=== PATIENT | female | born 1990 | race Caucasian/White ===

== ENCOUNTER 2016-11-07 20:51 | Emergency (ER) | payer OTHER ==
[2016-11-07] MEDS ORDERED: HYDROmorphone HCL 1 MG/ML SYR ONE ×2 (21:32→23:13)
[2016-11-07] MEDS ORDERED: ONDANSETRON HCL 4 MG/2 ML VIAL ONE (21:33)
[2016-11-07] MEDS ORDERED: KETOROLAC TROMETHAMINE 30 MG/ML VIAL ONE (21:33)
[2016-11-07 21:55] LABS: BASOPHILS 0.3 % (0.0-2.0); EOSINOPHILS 1.5 % (0.0-6.0); EOSINOPHILS# 0.1 X 10^3uL (0.0-0.4); HEMATOCRIT 42.2 % (36.0-48.0); HEMOGLOBIN 14.7 g/dL (12.0-16.0); LYMPHOCYTES 35.8 % (20.0-40.0); LYMPHOCYTES# 2.9 X 10^3uL (0.8-3.8); MEAN CELL VOLUME 92.7 fL (80.0-100.0); MEAN CORPUS. HGB CONCENTRATION 34.7 g/dL (32.0-36.0); MEAN CORPUSCULAR HEMOGLOBIN 32.2 pg (29.0-35.0); MEAN PLATELET VOLUME 7.6 fL (7.4-10.4); MONOCYTES 5.5 % (2.0-10.0); MONOCYTES# 0.5 X 10^3uL (0.2-1.0); NEUTROPHILS 56.9 % (54.0-75.0); NEUTROPHILS# 4.7 X 10^3uL (2.6-6.7); PLATELET COUNT 263 X 10^3uL (130-440); RED BLOOD COUNT 4.55 X 10^6uL (4.20-6.10); RED CELL DISTRIBUTION WIDTH 11.1 % (11.5-14.5); WHITE BLOOD COUNT 8.2 X 10^3uL (3.9-10.7)
[2016-11-07 22:07] LABS: BLOOD UREA NITROGEN 15 mg/dL (7-17); CHLORIDE 105 mmol/L (98-107); CREATININE 0.7 mg/dL (0.5-1.0); EST GLOMERULAR FILTRATION RATE > 60 mL/min; GLUCOSE 94 mg/dL (70-100); POTASSIUM 3.6 mmol/L (3.5-5.1); SODIUM 139 mmol/L (137-145)
[2016-11-07] MEDS ORDERED: ACETAMINOPHEN 325 MG TABLET PO ONE ×2 (23:22)
[2016-11-07] MEDS ORDERED: PIPERACILLIN /TAZO 3.375 GM/10 ML VIAL IV ONE (23:23)
[2016-11-07] MEDS ORDERED: NORMAL SALINE 100 ML IV ONE (23:26)
--- NOTE | 2016-11-08 01:11 | ER NURSING DOCUMENTATION ---
Nurse's Notes [facility] Name:Diana Kat Age:25 yrs Sex:Female :1990 Arrival Date:11/07/2016 Time:20:51 Bed5 Private MD: Diagnosis:Abdominal Pain, Right Lower Quadrant;Ovarian Cyst Presentation: 11/07 21:23 Presenting complaint: Patient states: C/O RLQ pain that is similar to her ovarian cyst rs MAR 2016. Discomfort started nine daus ago, saww a [employer] MD six days ago, an US was done and a 3 cm cyst was present. She was instructed by that MD to wait 6 weeks and see how she did. This evening at 5:30 the discomfort changed to severe pain. The pain is constant with waves of sharp stabbing pain in her RLQ radiating into her right pelvis. She had a fever earlier of 103.9. She has vomited once. Took Advil without any relief. States this pain is much more severe than the ovarian cyst last summer. Pain increases when she straightens her legs or walks. Transition of care: patient was not received from another setting of care. 21:23 Acuity: JORDI 2 rs 21:23 Method Of Arrival: Private Vehicle rs Triage Assessment: 21:15 General: Appears distressed, uncomfortable, well developed, well nourished, well rs groomed, Behavior is cooperative, pleasant, Reports chills for fever for fatigue for. Pain: Complains of pain in RLQ. 21:15 Neuro: No deficits noted. Level of Consciousness is awake, alert, Oriented to person, rs place, time, event. Cardiovascular: No deficits noted. Capillary refill < 3 seconds Heart tones S1 S2 Pulses. Respiratory: No deficits noted. Airway is patent Respiratory effort is even, unlabored, Respiratory pattern is regular, symmetrical, Breath sounds are clear bilaterally. GI: Abdomen is flat, non- distended Last meal at 17:30. other last BM today. Has been constipated recently. LMP: states she has been spotting for one month due to BCP. Bowel sounds hypoactive in right upper quadrant, left upper quadrant, right lower quadrant and left lower quadrant Abd is soft Abdomen is tender to palpation in right lower quadrant Reports lower abdominal pain, nausea, vomiting. : No deficits noted. Urine is clear, Denies burning with urination, discharge, inability to void, urinary frequency, urgency. Derm: No deficits noted. Skin is pink, warm & dry. Historical: - Allergies: Sulfa (Sulfonamide Antibiotics); - Home Meds: 1. control - PMHx: endometriosis; OVARIAN CYST; - PSHx: ovarian cyst; - Tetanus: unknown. - Ebola Screening: : Patient negative for fever greater than or equal to 101.5 degrees Fahrenheit, and additional compatible Ebola Virus Disease symptoms. Patient denies exposure to infectious person. Patient denies travel to an Ebola-affected area in the 21 days before illness onset. No symptoms or risks identified at this time. . - Immunization history: Unable to Obtain. - Social history: Smoking status: Patient states was never smoker of tobacco. Patient uses alcohol but reports only rare drinking. Screenin:30 Nutritional screening: No deficits noted. rs 23:07 Infectious Disease Risk None. Abuse screen: Denies threats or abuse. rs Assessment: 23:05 Reassessment: No changes from previously documented assessment. rs Vital Signs: 20:58 BP 111 / 52 (auto/); rs 21:00 BP 111 / 52; Pulse 73; Resp 20; Temp 100.6; Pulse Ox 96% ; Weight 56.7 kg; Height 5 ft. jt 3 in. (160.02 cm); Pain 9/10; 21:02 Pulse Ox 95% ; rs 21:32 Pulse Ox 99% ; rs 22:07 Pulse Ox 96% ; rs 22:07 BP 107 / 60 (auto/); Pulse 84; Resp 18; Pulse Ox 94% on R/A; rs 22:26 BP 107 / 72 (auto/); rs 22:27 BP 110 / 63; Pulse 88; Resp 18; Pulse Ox 94% on R/A; rs 22:45 BP 114 / 62 (auto/); rs 22:47 Pulse Ox 92% ; rs 11/08 00:19 BP 107 / 69; Pulse 86; Resp 16; Pulse Ox 94% on 2 lpm NC; mk4 11/07 21:00 Body Mass Index 22.14 (56.70 kg, 160.02 cm) jt Veronica Coma Score: 11/07 22:47 Eye Response: spontaneous(4). Verbal Response: oriented(5). Motor Response: obeys cd commands(6). Total: 15. ED Course: 20:53 Patient arrived in ED. jt 21:10 Inserted peripheral IV: saline lock: 20 gauge in right antecubital area and blood jt collected. 21:10 Notified ED Physician of patient's arrival and chief complaint. Dr. Ernst notified. Arm rs band placed on Bed in low position Call Light in Reach Gowned HOB Elevated Side rails up x2 Emesis basin given. Family Pt has contacted her step mother, and she is accompanied by her boyfriend. Labs ordered per protocol. Drawn by ED staff. Urine obtained. 21:15 Diet: Patient is NPO. rs 21:23 Laura Park, RN is Primary Nurse. rs 21:25 Bharat Ernst MD is Attending Physician. cd 21:45 Triage completed. rs 23:07 Pulse Ox - RN Monitoring Only. Door closed. Noise minimized. Verbal reassurance given. rs 04/ 00:18 Valuables Remains with patient. mk4 Administered Medications: Completed: NS 0.9% 1000 ml IV at bolus once 11/07 21:30 Drug: NS 0.9% 1000 ml; Volume: 1000 ml; Route: IV; Rate: bolus; Site: right rs antecubital; Delivery: [place] [facility]; 22:43 Follow up: IV Status: Completed infusion; IV Intake: 1000ml rs 21:35 Drug: Zofran 4 mg; Route: IVP; Rate: 2 mg/min; Infused Over: 2 mins; Site: right rs antecubital; 22:11 Follow up: Response: No adverse reaction; Nausea is decreased rs 21:37 Drug: Toradol 30 mg; Route: IVP; Rate: 15 mg/min; Infused Over: 2 mins; Site: right rs antecubital; 22:11 Follow up: Response: No adverse reaction; No change in condition rs 21:40 Drug: Dilaudid 0.5 mg; Route: IVP; Rate: 0.25 mg/min; Infused Over: 2 mins; Site: right rs antecubital; 22:11 Follow up: Response: No adverse reaction; No change in condition rs 21:55 Drug: Dilaudid 0.5 mg; Route: IVP; Rate: 0.25 mg/min; Infused Over: 2 mins; Site: right rs antecubital; 23:00 Drug: NS 0.9% 1000 ml; Route: IV; Rate: bolus; Infused Over: 1000 continuous; Site: mk4 right antecubital; Delivery: [place] [facility]; 11/08 00:40 Drug: Zosyn 3.375 grams; Volume: 100 ml; Route: IVPB; Rate: 3.375 bolus; Infused Over: mk4 1 hrs; Site: right antecubital; Delivery: Pump; 00:43 Drug: Acetaminophen 975 mg; Route: PO; mk4 21:15 Drug: Dilaudid 1 mg; Route: IVP; Rate: 1 bolus; Infused Over: 2 mins; Site: right mk4 antecubital; 21:16 Follow up: Response: No adverse reaction; Pain is decreased; late entry mk4 Intake: 11/07 22:43 IV: 1000ml; Total: 1000ml. rs 23:05 PO: 0ml; IV: 1000ml; Total: 2000ml. rs Outcome: 23:08 Report given to Aaliyah stevens 11/08 00:19 [facility]: stable Report given to [facility] grain sacker Assessment: Patient awake, alert and oriented x 3. No cognitive and/or functional deficits noted. Patient verbalized understanding of disposition instructions. 01:09 ER care complete, transfer ordered by . gerald 01:10 Patient left the ED. rs 21:17 Patient left the ED. 4 Signatures: Laura Park RN RN Bharat Mauricio MD MD cd King, Coral Gonzalez
--- NOTE | 2016-11-08 01:11 | ER PHYSICIAN DOCUMENTATION ---
Physician Documentation [facility] Name:Diana Kat Age:25 yrs Sex:Female :1990 Arrival Date:11/07/2016 Time:20:51 Bed5 Private MD: Bharat Martins Disposition: 11/08/16 01:09 Transfer ordered to [facility]. Diagnosis are Abdominal Pain, Right Lower Quadrant, Ovarian Cyst. - Reason for transfer: Higher level of care. - Accepting physician is Dr. Man. - Condition is Fair. - Problem is an ongoing problem. - Symptoms have improved. COBRA Form completed? Yes Transfer - Mode of Transportation Ambulance HPI: 11/07 22:37 This 25 yrs old Female presents to ER via Private Vehicle with complaints of cd RLQ Abdominal Pain / Pelvic Pain. 22:37 The patient presents with abdominal pain in the lower abdomen, right lower quadrant. cd Onset: The symptoms/episode began/occurred acutely, today, at 17:00. Associated signs and symptoms: Pertinent positives: anorexia, constipation, fever, nausea, vomiting, Pertinent negatives: blood in stools, diarrhea, dysuria, vomiting blood. The symptoms are described as achy, constant. Severity of pain: At its worst the pain was severe in the emergency department the pain is unchanged. Risk factors for ectopic : Hx of Endometriosis. The patient has experienced a previous episode, approximately 8 months ago, and the symptoms today are exactly the same, and had a large "softball sized" right ovarian infected cyst that was surgically removed. Five days ago the patient had right pelvic pain, went to her [facility] at [facility]. An Ultrasound was done and a 3 cm right Adnexal cyst was found. The [facility] wanted to recheck her in six weeks. The patient reports she had a fever of 103.9 degrees F. No vaginal discharge or bleeding. 22:37 The symptoms do not radiate. The patient has been recently seen by a physician: the cd patient's primary care provider, 5 day(s) ago, with similar presenting complaints, and apparently given a diagnosis of Right Ovarian Cyst, an ultrasound was done. Historical: - Allergies: Sulfa (Sulfonamide Antibiotics); - Home Meds: 1. control - PMHx: endometriosis; OVARIAN CYST; - PSHx: ovarian cyst; - Tetanus: unknown. - Ebola Screening: : Patient negative for fever greater than or equal to 101.5 degrees Fahrenheit, and additional compatible Ebola Virus Disease symptoms. Patient denies exposure to infectious person. Patient denies travel to an Ebola-affected area in the 21 days before illness onset. No symptoms or risks identified at this time. . - Immunization history: Unable to Obtain. - Social history: Smoking status: Patient states was never smoker of tobacco. Patient uses alcohol but reports only rare drinking. ROS: 22:45 Neck: Negative for injury, pain, stiffness and swelling. cd Cardiovascular: Negative for chest pain, palpitations, edema and pleuritic pain. Respiratory: Negative for shortness of breath, dyspnea on exertion, cough, sputum production, wheezing, hemoptysis and pleuritic chest pain. Back: Negative for injury, pain or muscle spasms. MS/Extremity: Negative for injury, deformity, edema, calf tenderness, pain or coldness. Skin: Negative for injury, rash, itching and discoloration. 22:45 Neuro: Negative for headache, weakness, numbness, tingling, and seizure. cd 22:45 Constitutional: Positive for fever, poor PO intake, Negative for chills. 22:45 Abdomen/GI: Positive for abdominal pain, nausea, vomiting, constipation, anorexia, of the suprapubic area and right lower quadrant, Negative for diarrhea, abdominal distension, hematemesis, black/tarry stool, rectal bleeding. 22:45 : Positive for pelvic pain, Negative for urinary symptoms, urinary frequency, burning with urination, vaginal bleeding, vaginal discharge. 22:45 All other systems are negative. cd Exam: ENT: Nares patent. No nasal discharge, no septal abnormalities noted. Tympanic membranes are normal and external auditory canals are clear. Oropharynx with no redness, swelling, or masses, exudates, or evidence of obstruction, uvula midline. Mucous membranes dry. Cardiovascular: Regular rate and rhythm with a normal S1 and S2. No gallops, murmurs, or rubs. Normal PMI, no JVD. No pulse deficits. Respiratory: Lungs have equal breath sounds bilaterally, clear to auscultation and percussion. No rales, rhonchi or wheezes noted. No increased work of breathing, no retractions or nasal flaring. Back: No spinal tenderness. No costovertebral tenderness. Full range of motion. Skin: Warm, dry with normal turgor. Normal color with no rashes, no lesions, and no evidence of cellulitis. MS/ Extremity: Pulses equal, no cyanosis. Neurovascular intact. Full, normal range of motion. 22:47 Neuro: Awake and alert, GCS 15, oriented to person, place, time, and situation. cd Cranial nerves II-XII grossly intact. Motor strength 5/5 in all extremities. Sensory grossly intact. Cerebellar exam normal. Normal gait. 22:47 Constitutional: The patient appears alert, awake, non-diaphoretic, non-toxic, well developed, well nourished, anxious, in obvious distress, moderately distressed. 22:47 Abdomen/GI: Palpation: moderate abdominal tenderness, in the right lower quadrant, rebound tenderness, is not appreciated, voluntary guarding, is elicited in the suprapubic area and right lower quadrant, involuntary guarding, is not appreciated, no appreciated organomegaly, Rectal exam: the exam is deferred, Indicators: McBurney's point is tender, Malik's sign is negative. Vital Signs: 20:58 BP 111 / 52 (auto/); rs 21:00 BP 111 / 52; Pulse 73; Resp 20; Temp 100.6; Pulse Ox 96% ; Weight 56.7 kg; Height 5 ft. jt 3 in. (160.02 cm); Pain 9/10; 21:02 Pulse Ox 95% ; rs 21:32 Pulse Ox 99% ; rs 22:07 Pulse Ox 96% ; rs 22:07 BP 107 / 60 (auto/); Pulse 84; Resp 18; Pulse Ox 94% on R/A; rs 22:26 BP 107 / 72 (auto/); rs 22:27 BP 110 / 63; Pulse 88; Resp 18; Pulse Ox 94% on R/A; rs 22:45 BP 114 / 62 (auto/); rs 22:47 Pulse Ox 92% ; rs 04 00:19 BP 107 / 69; Pulse 86; Resp 16; Pulse Ox 94% on 2 lpm NC; mk4 11/07 21:00 Body Mass Index 22.14 (56.70 kg, 160.02 cm) jt Vallejo Coma Score: 11/07 22:47 Eye Response: spontaneous(4). Verbal Response: oriented(5). Motor Response: obeys cd commands(6). Total: 15. MDM: 21:00 Data interpreted: Pulse oximetry: on room air is 94 %. Interpretation: normal. cd 21:25 Patient medically screened. cd 22:47 Differential diagnosis: appendicitis, bowel obstruction, non-specific abd pain, Ovarian cd Torsion, Pelvic Inflammatory Disease, Pyelonephritis, Tubal Ovarian Abcess, Ureterolithiasis, urinary tract infection, Ruptured ovarian cyst. 22:50 Data reviewed: vital signs, nurses notes, old medical records, and as a result, I will cd continue to observe the patient, administer IV fluids, NS bolus, NS maintenence, prescribe pain medication, Dilaudid, Toradol. 22:55 Response to treatment: the patient's symptoms have mildly improved after treatment, cd continued severe pain in RLQ Abdomen and Pelvis. Needs CT Scan of the abdomen tonight, [facility] [place]'s CT scanner is done for 2 days. Also needs Ultrasound of Pelvis which is unavailable on weekends at [facility] [place] [place]. Must rule out Ovarian Torsion, Acute Appendicitis, Right known Ovarian Cyst that might be infected like previous cyst 8 months ago. The patient will be transferred to [facility] ED by Ambulance. 23:15 Physician consultation: Dr. Donovan CAM was called at 23:00, was contacted at 23:05, regarding admission, to [facility] ED, consult, patient's condition, need to come to ED to see patient, need to evaluate the patient as soon as possible, and will see patient in ED, shortly, later today, after a discussion of the case, a recommendation for transfer for higher level of care is made. 23:45 Counseling: I had a detailed discussion with the patient and/or guardian regarding: the cd historical points, exam findings, and any diagnostic results supporting the discharge/admit diagnosis, lab results, the need to transfer to another facility, for higher level of care, [facility] does not immediately have the required specialist. 11/07 22:12 Order name: CBC AUTO DIF, MDIF/RMOR IF IND; Complete Time: 23:08 EDMS 11/07 22:31 Interpretation: Normal. 11/07 22:12 Order name: BASIC METABOLIC PANEL; Complete Time: 23:08 EDMS 04 22:31 Interpretation: Normal. 11/07 22:41 Order name: HCG, SERUM; Complete Time: 23:08 EDMS 11/07 23:08 Interpretation: Normal. 11/07 21:26 Order name: NPO; Complete Time: 21:52 cd Dispensed Medications: Completed: NS 0.9% 1000 ml IV at bolus once 21:30 Drug: NS 0.9% 1000 ml; Volume: 1000 ml; Route: IV; Rate: bolus; Site: right rs antecubital; Delivery: [place] [facility]; 22:43 Follow up: IV Status: Completed infusion; IV Intake: 1000ml rs 21:35 Drug: Zofran 4 mg; Route: IVP; Rate: 2 mg/min; Infused Over: 2 mins; Site: right rs antecubital; 22:11 Follow up: Response: No adverse reaction; Nausea is decreased rs 21:37 Drug: Toradol 30 mg; Route: IVP; Rate: 15 mg/min; Infused Over: 2 mins; Site: right rs antecubital; 22:11 Follow up: Response: No adverse reaction; No change in condition rs 21:40 Drug: Dilaudid 0.5 mg; Route: IVP; Rate: 0.25 mg/min; Infused Over: 2 mins; Site: right rs antecubital; 22:11 Follow up: Response: No adverse reaction; No change in condition rs 21:55 Drug: Dilaudid 0.5 mg; Route: IVP; Rate: 0.25 mg/min; Infused Over: 2 mins; Site: right rs antecubital; 23:00 Drug: NS 0.9% 1000 ml; Route: IV; Rate: bolus; Infused Over: 1000 continuous; Site: [facility] right antecubital; Delivery: [place] [facility]; 11/08 00:40 Drug: Zosyn 3.375 grams; Volume: 100 ml; Route: IVPB; Rate: 3.375 bolus; Infused Over: mk4 1 hrs; Site: right antecubital; Delivery: Pump; 00:43 Drug: Acetaminophen 975 mg; Route: PO; mk4 21:15 Drug: Dilaudid 1 mg; Route: IVP; Rate: 1 bolus; Infused Over: 2 mins; Site: right mk4 antecubital; 21:16 Follow up: Response: No adverse reaction; Pain is decreased; late entry mk4 Signatures: Laura Park RN RN rs Bharat Ernst MD MD cd King, Melody [facility]
[2016-11-08] MEDS ORDERED: ONDANSETRON HCL 4 MG/2 ML VIAL ONE (03:49)
[2016-11-08] MEDS ORDERED: MORPHINE SULFATE 10 MG/ML SYR ONE (03:51)
== END 2016-11-08 21:17 | disposition short-term general hospital (02) ==
LOC: ER 20:51
DX: N83.201 Unspecified ovarian cyst, right side (principal); R50.9 Fever, unspecified; R11.2 Nausea with vomiting, unspecified; R10.31 Right lower quadrant pain; R10.2 Pelvic and perineal pain; Z99.89 Dependence on other enabling machines and devices; Z74.3 Need for continuous supervision
CPT/HCPCS: 80048; 84703; 85025; 87040; 96361; 96374; 96375; 96376; 99285; A0425; A0427; J1170; J1885; J2270; J2405; J2543